=== PATIENT | female | born 1970 | race American Indian/Alaskan Native ===

== ENCOUNTER 2017-04-03 01:41 | Emergency (ER) | payer SELFPAY ==
[2017-04-03 02:17] VITALS: BP 132/102
[2017-04-03 02:46] LABS: Basophils % (Auto) 0.6 % (0.0-1.8); Eosinophils % (Auto) 2.7 % (0.0-4.3); Hematocrit 37.6 % (30.3-42.9); Hemoglobin 12.2 gm/dl (10.1-14.3); Mean Corpuscular HGB Conc 32 % (30-34); Mean Corpuscular Hemoglobin 27 pg (28-32); Mean Corpuscular Volume 85 fl (79-97); Platelet Count 222 K/mm3 (140-440); Red Blood Count 4.45 M/mm3 (3.65-5.03); Red Cell Distribution Width 15.3 % (13.2-15.2); White Blood Count 6.6 K/mm3 (4.5-11.0)
[2017-04-03 03:01] LABS: Anion Gap 14 mmol/L; BUN/Creatinine Ratio 24.28; Blood Urea Nitrogen 17 mg/dL (7-17); Calcium 8.5 mg/dL (8.4-10.2); Carbon Dioxide 27 mmol/L (22-30); Glucose 62 mg/dL (65-100); Potassium 3.5 mmol/L (3.6-5.0); Sodium 139 mmol/L (137-145)
[2017-04-03 03:07] LABS: Bacteria,Urine 1+ /HPF (Negative); Bilirubin,Urine NEG (Negative); Blood,Urine NEG (Negative); Ketones,Urine NEG (Negative); Leukocyte Esterase,Urine NEG (Negative); Nitrite,Urine NEG (Negative); Protein,Urine <15 mg/dL mg/dL (Negative)
--- NOTE | 2017-04-08 19:45 | ED Elopement Review ---
ED Pt Elopement review - Results review Lab results: Laboratory Tests 04/03/17 04/03/17 04/03/17 02:27 02:27 02:31 WBC 6.6 RBC 4.45 Hgb 12.2 Hct 37.6 MCV 85 MCH 27 L MCHC 32 RDW 15.3 H Plt Count 222 Lymph % (Auto) 40.0 H [place] % (Auto) 9.4 H Eos % (Auto) 2.7 Baso % (Auto) 0.6 Lymph # 2.6 [place] # 0.6 Eos # 0.2 Baso # 0.0 Seg Neutrophils % 47.3 Seg Neutrophils # 3.1 Sodium 139 Potassium 3.5 L Chloride 102.0 Carbon Dioxide 27 Anion Gap 14 BUN 17 Creatinine 0.7 Estimated GFR > 60 BUN/Creatinine Ratio 24.28 Glucose 62 L Calcium 8.5 Troponin T < 0.010 Urine Color Yellow Urine Turbidity Clear Urine pH 5.0 Ur Specific [place] 1.019 Urine Protein <15 mg/dl Urine Glucose (UA) Neg Urine Ketones Neg Urine Blood Neg Urine Nitrite Neg Urine Bilirubin Neg Urine Urobilinogen 2.0 Ur Leukocyte Esterase Neg Urine WBC (Auto) 2.0 Urine RBC (Auto) 2.0 U Epithel Cells (Auto) 2.0 Urine Bacteria (Auto) 1+ - Call Back decision Pt Call Back Decision: No action required
== END 2017-04-03 05:00 | disposition left against medical advice (07) ==
LOC: ED 01:41
DX: R10.30 Lower abdominal pain, unspecified (principal); Z53.21 Procedure and treatment not carried out due to patient leaving prior to being seen by health care provider
CPT/HCPCS: 36415; 80048; 81001; 84484; 85025; 93005; 93010

== ENCOUNTER 2018-04-26 02:05 | Emergency (ER) | payer MEDICARE ==
[2018-04-26 02:16] VITALS: BP 142/90
[2018-04-26] MEDS ORDERED: ULTRAM PO ONE (04:05)
[2018-04-26] MEDS ORDERED: BOOSTRIX IM ONE (04:05)
[2018-04-26] MEDS ORDERED: TYLENOL PO ONE (04:24)
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
== END 2018-04-26 06:45 | disposition home or self-care (01) ==
LOC: ED 02:05 → EEVIPCON 02:05 → ED 06:45
DX: S61.230A Puncture wound without foreign body of right index finger without damage to nail, initial encounter (principal); S61.031A Puncture wound without foreign body of right thumb without damage to nail, initial encounter; I10 Essential (primary) hypertension; E11.9 Type 2 diabetes mellitus without complications; G43.909 Migraine, unspecified, not intractable, without status migrainosus; J45.909 Unspecified asthma, uncomplicated; F17.200 Nicotine dependence, unspecified, uncomplicated; F12.10 Cannabis abuse, uncomplicated; Z90.49 Acquired absence of other specified parts of digestive tract; Z88.6 Allergy status to analgesic agent; Z88.2 Allergy status to sulfonamides; Z88.8 Allergy status to other drugs, medicaments and biological substances; Y04.1XXA Assault by human bite, initial encounter; Y93.89 Activity, other specified; Y92.89 Other specified places as the place of occurrence of the external cause; Y99.8 Other external cause status
CPT/HCPCS: 70450; 72125; 90471; 90715; 99283

== ENCOUNTER 2019-09-17 23:53 | Emergency (ER) | payer MEDICARE ==
[2019-09-18 00:13] VITALS: BP 126/83
== END 2019-09-18 00:59 | disposition left against medical advice (07) ==
LOC: ED 23:53
DX: R07.89 Other chest pain (principal); Z53.21 Procedure and treatment not carried out due to patient leaving prior to being seen by health care provider
CPT/HCPCS: 93005; 93010

== ENCOUNTER 2019-10-16 20:26 | Emergency (ER) | payer MEDICARE ==
[2019-10-16 22:13] VITALS: BP 137/90
[2019-10-16 22:18] LABS: Basophils % (Auto) 0.8 % (0.0-1.8); Eosinophils % (Auto) 0.7 % (0.0-4.3); Hematocrit 37.3 % (30.3-42.9); Hemoglobin 12.1 gm/dl (10.1-14.3); Lymphocytes # (Auto) 1.9 K/mm3 (1.2-5.4); Lymphocytes % (Auto) 41.6 % (13.4-35.0); Mean Corpuscular HGB Conc 32 % (30-34); Mean Corpuscular Volume 83 fl (79-97); Monocytes # (Auto) 0.6 K/mm3 (0.0-0.8); Monocytes % (Auto) 12.4 % (0.0-7.3); Platelet Count 222 K/mm3 (140-440); Red Blood Count 4.52 M/mm3 (3.65-5.03)
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
[2019-10-16] MEDS ORDERED: SODIUM CHLORIDE 0.9% 1000 ML 1,000 ML IV ONE (22:27)
[2019-10-16 22:38] LABS: BUN/Creatinine Ratio 6; Blood Urea Nitrogen 5 mg/dL (7-17); Hemolysis Index 13
== END 2019-10-16 22:56 | disposition left against medical advice (07) ==
LOC: ED 20:26
DX: E87.6 Hypokalemia (principal); R55 Syncope and collapse; F10.129 Alcohol abuse with intoxication, unspecified; I10 Essential (primary) hypertension; E11.9 Type 2 diabetes mellitus without complications; J45.909 Unspecified asthma, uncomplicated; G43.909 Migraine, unspecified, not intractable, without status migrainosus; F17.200 Nicotine dependence, unspecified, uncomplicated; Z88.5 Allergy status to narcotic agent; Z88.6 Allergy status to analgesic agent; Z88.8 Allergy status to other drugs, medicaments and biological substances; Z79.899 Other long term (current) drug therapy; Z90.49 Acquired absence of other specified parts of digestive tract; Z98.890 Other specified postprocedural states
CPT/HCPCS: 36415; 80048; 80320; 82962; 85025; 93005; 93010; G0480

== ENCOUNTER 2022-04-21 05:12 | Emergency (ER) | payer MEDICARE ==
--- NOTE | 2022-04-21 08:42 | Consultation ---
History of Present Illness - Reason for Consult Consult date: 04/21/22 Reason for consult: psychosis - History of Present Psychiatric Illness The patient was seen today. She is acting bizarrely. She is rocking and moaning. She is crying. She then starts humming. She says "I can't stop shaking, yesterday I had a seizure." The patient says she is hearing voices "saying all kinds of stuff." She endorses suicidal thoughts. When asking the patient if she had a plan, she replies "I don't have a knife." Will start medication and recommend inpatient psychiatric treatment to stabilize the patient. PAST PSYCHIATRIC HISTORY Diagnoses: schizoaffective Suicide attempts or Self-harm behavior: yes Prior psychiatric hospitalizations: yes Substance Abuse history: "weed" Previous psychiatric medications tried: Ted Outpatient treatment: yes PAST MEDICAL HISTORY: None reported Family Psychiatric History: None reported or documented SOCIAL HISTORY Marital Status: Living Arrangements: With family Employment Status: Disabled Access to guns/weapons: Denies Education: History of Abuse: Denies Legal History: Denies EVIEW OF SYSTEMS Constitutional: Negative for weight loss ENT: Negative for stridor Respiratory: Negative for cough or hemoptysis All other systems reviewed and are negative MENTAL STATUS EXAMINATION General Appearance and Behavior: Age appropriate, wearing appropriate clothes, bizarre, shaking, humming, moaning Mood: depressed Affect and affective range: congruent with mood Thought Process: illogical Thought Content: hallucinations Speech: Normal volume, Regular rate and rhythm Suicidal Ideation: Yes Homicidal Ideation: Denies Hallucinations: Auditory Delusions: None elicited Impulse Control: Limited Insight and Judgment: Limited Memory/Cognition: Limited Attention: Normal Orientation: Alert, oriented Assessment (1) Schizoaffective Disorder Plan 1013 Olanzapine 7.5mg po daily Trazodone 50mg po qhs Sitter: Defer to primary Medical: Per primary Disposition: Recommend acute psychiatric inpatient treatment Will follow. Thank you for this consult. Case staffed with Dr. Magdaleno Medications and Allergies Allergies Allergy/AdvReac Type Severity Reaction Status Date / Time codeine Allergy Itching Verified 04/03/17 02:19 NSAIDS (Non-Steroidal Allergy Unknown Verified 04/03/17 02:18 Anti-Inflamma Sulfa (Sulfonamide Allergy Hives Verified 04/03/17 02:17 Antibiotics) prednisone AdvReac HEART RACE Verified 12/07/16 09:57 / FLUTTER tramadol [From Ultram] AdvReac Dizziness Verified 04/26/18 04:25 steroids Allergy Hives Uncoded 04/03/17 02:18 Home Medications Medication Instructions Recorded Confirmed Last Taken Type Cyclobenzaprine [Flexeril] 10 mg PO TID PRN #15 tablet 12/07/16 Unknown Rx Ondansetron [Zofran ODT TAB] 4 mg PO Q8HR PRN #12 tab.rapdis 12/07/16 Unknown Rx Permethrin 5% [Acticin 5% CREAM] 1 applicatio TP ONCE #1 tube 12/07/16 Unknown Rx Fluconazole (Nf) [Diflucan TAB] 150 mg PO ONCE #1 tablet 04/26/18 Unknown Rx Naproxen [Naprosyn] 500 mg PO BID PRN 2 Days #30 tablet 04/26/18 Unknown Rx Amoxicillin/Potassium Clav 1 each PO BID #20 tablet 08/07/18 Unknown Rx [Augmentin 875-125 Tablet] HYDROcodone/APAP 5-325 [[place] 1 each PO Q6HR #8 tablet 08/07/18 Unknown Rx 5/325] Chlorhexidine Mouthwash [Peridex] 15 ml MM BID #473 bottle 08/25/18 Unknown Rx Lidocaine Viscous 2% 5 ml MM Q3H PRN #120 udc 08/25/18 Unknown Rx Mental Status Exam - Vital signs Last Vital Signs Temp 98.6 F 04/21/22 06:38 Pulse 89 04/21/22 06:38 Resp 25 H 04/21/22 06:38 BP 165/88 04/21/22 06:38 Pulse Ox 98 04/21/22 06:46 Results All other labs normal.
--- NOTE | 2022-04-21 11:59 | Emergency Department Report ---
ED Psych HPI - General Chief Complaint: Medical Clearance Stated Complaint: HEARING VOICES/MH Time Seen by Provider: 04/21/22 11:54 Source: EMS Mode of arrival: Stretcher - History of Present Illness Initial Comments: Patient is a 51-year-old female presenting for psychiatric evaluation. She reports having a seizure yesterday. On my arrival to the room she appears to be anxious and is rocking back and forth mumbling to herself. States he is hearing all kinds of voices and endorses suicidal ideations. - Related Data Previous Rx's Medication Instructions Recorded Last Taken Type Cyclobenzaprine [Flexeril] 10 mg PO TID PRN #15 tablet 12/07/16 Unknown Rx Ondansetron [Zofran ODT TAB] 4 mg PO Q8HR PRN #12 tab.rapdis 12/07/16 Unknown Rx Permethrin 5% [Acticin 5% CREAM] 1 applicatio TP ONCE #1 tube 12/07/16 Unknown Rx Fluconazole (Nf) [Diflucan TAB] 150 mg PO ONCE #1 tablet 04/26/18 Unknown Rx Naproxen [Naprosyn] 500 mg PO BID PRN 2 Days #30 tablet 04/26/18 Unknown Rx Amoxicillin/Potassium Clav 1 each PO BID #20 tablet 08/07/18 Unknown Rx [Augmentin 875-125 Tablet] HYDROcodone/APAP 5-325 [[place] 1 each PO Q6HR #8 tablet 08/07/18 Unknown Rx 5/325] Chlorhexidine Mouthwash [Peridex] 15 ml MM BID #473 bottle 08/25/18 Unknown Rx Lidocaine Viscous 2% 5 ml MM Q3H PRN #120 udc 08/25/18 Unknown Rx Allergies Allergy/AdvReac Type Severity Reaction Status Date / Time codeine Allergy Itching Verified 04/03/17 02:19 NSAIDS (Non-Steroidal Allergy Unknown Verified 04/03/17 02:18 Anti-Inflamma Sulfa (Sulfonamide Allergy Hives Verified 04/03/17 02:17 Antibiotics) prednisone AdvReac HEART RACE Verified 12/07/16 09:57 / FLUTTER tramadol [From Ultram] AdvReac Dizziness Verified 04/26/18 04:25 steroids Allergy Hives Uncoded 04/03/17 02:18 ED Review of Systems ROS: Stated complaint: HEARING VOICES/MH Other details as noted in HPI Constitutional: denies: chills, fever Respiratory: denies: cough, shortness of breath, wheezing Cardiovascular: denies: chest pain, palpitations Gastrointestinal: denies: abdominal pain, nausea, diarrhea Genitourinary: denies: urgency, dysuria, discharge Musculoskeletal: denies: back pain, joint swelling, arthralgia Skin: denies: rash, lesions Neurological: other (Seizure) Psychiatric: auditory hallucinations, suicidal thoughts ED Past Medical Hx - Past Medical History Hx Hypertension: Yes Hx Diabetes: Yes Hx Headaches / Migraines: Yes Hx Asthma: Yes Additional medical history: URTICARIA. SLEEP APNEA. HEART MURMUR - Surgical History Hx Cholecystectomy: Yes Additional Surgical History: GASTRIC BYPASS. . BILATERAL CARPAL TUNNEL RELEASE. LEFT KNEE SURGERY. TUBAL LIGATION - Social History Smoking Status: Current Every Day Smoker Substance Use Type: Alcohol, Methamphetamines - Medications Home Medications: Home Medications Medication Instructions Recorded Confirmed Last Taken Type Cyclobenzaprine [Flexeril] 10 mg PO TID PRN #15 tablet 12/07/16 Unknown Rx Ondansetron [Zofran ODT TAB] 4 mg PO Q8HR PRN #12 tab.rapdis 12/07/16 Unknown Rx Permethrin 5% [Acticin 5% CREAM] 1 applicatio TP ONCE #1 tube 12/07/16 Unknown Rx Fluconazole (Nf) [Diflucan TAB] 150 mg PO ONCE #1 tablet 04/26/18 Unknown Rx Naproxen [Naprosyn] 500 mg PO BID PRN 2 Days #30 tablet 04/26/18 Unknown Rx Amoxicillin/Potassium Clav 1 each PO BID #20 tablet 08/07/18 Unknown Rx [Augmentin 875-125 Tablet] HYDROcodone/APAP 5-325 [[place] 1 each PO Q6HR #8 tablet 08/07/18 Unknown Rx 5/325] Chlorhexidine Mouthwash [Peridex] 15 ml MM BID #473 bottle 08/25/18 Unknown Rx Lidocaine Viscous 2% 5 ml MM Q3H PRN #120 udc 08/25/18 Unknown Rx ED Physical Exam - General Limitations: Altered Mental Status General appearance: alert, anxious - Head Head exam: Present: atraumatic, normocephalic - Respiratory Respiratory exam: Present: normal lung sounds bilaterally. Absent: respiratory distress - Cardiovascular Cardiovascular Exam: Present: regular rate, normal rhythm, normal heart sounds - GI/Abdominal GI/Abdominal exam: Present: soft. Absent: tenderness - Rectal Rectal exam: Present: deferred - Extremities Exam Extremities exam: Present: normal inspection - Neurological Exam Neurological exam: Present: alert, oriented X3 - Psychiatric Psychiatric exam: Present: anxious, suicidal ideation - Skin Skin exam: Present: warm, dry, intact, normal color ED Course Vital Signs 04/21/22 04/21/22 04/21/22 06:38 06:46 10:07 Temperature 98.6 F 98.7 F Pulse Rate 89 86 Respiratory 25 H 18 Rate Blood Pressure 165/88 Blood Pressure 158/70 [Left] O2 Sat by Pulse 98 98 100 Oximetry Critical care attestation.: If time is entered above; I have spent that time in minutes in the direct care of this critically ill patient, excluding procedure time. ED Disposition Condition: Stable
[2022-04-21 18:39] LABS: Hematocrit 30.1 % (30.3-42.9); Hemoglobin 9.7 gm/dl (10.1-14.3); Mean Corpuscular HGB Conc 32 % (30-34); Platelet Count 345 K/mm3 (140-440)
[2022-04-21 18:52] LABS: Alanine Aminotransferase 32 units/L (7-56); Albumin 4.6 g/dL (3.9-5); BUN/Creatinine Ratio 6; Blood Urea Nitrogen 6 mg/dL (7-17); Calcium 9.9 mg/dL (8.4-10.2); Hemolysis Index 4
[2022-04-21 18:53] LABS: Mean Corpuscular Volume 68 fl (79-97); Red Cell Distribution Width 21.3 % (13.2-15.2)
[2022-04-21 20:59] LABS: Total Cells Counted 100
[2022-04-21 21:00] LABS: Anisocytosis 1+; Basophils % (Manual) 0 % (0.0-1.8); Eosinophils % (Manual) 0 % (0.0-4.3)
[2022-04-21 21:01] LABS: Hypochromasia 1+
[2022-04-21 21:02] LABS: Platelet Estimate Consistent w Auto
[2022-04-21] MEDS: traZODone 50 MG TAB PO SCH (22:05)
[2022-04-21] MEDS ORDERED: HALOPERIDOL LACTATE 5 MG/1 ML INJ IM ONE (22:10)
--- NOTE | 2022-04-22 07:56 | Progress Note ---
Subjective - Reason for Consult Consult date: 04/22/22 Reason for consult: psychosis - Chief Complaint Chief complaint: The patient was seen today. She is shaking and states she's trying to drown out the voices. She still endorses SI. When asked if she had a plan, she replies "I don't have nothing to do it with in here." She denies homicidal thoughts. REVIEW OF SYSTEMS Constitutional: Negative for weight loss ENT: Negative for stridor Respiratory: Negative for cough or hemoptysis All other systems reviewed and are negative MENTAL STATUS EXAMINATION General Appearance and Behavior: Age appropriate, wearing appropriate clothes, bizarre, shaking, humming, moaning Mood: depressed Affect and affective range: congruent with mood Thought Process: illogical Thought Content: hallucinations Speech: Normal volume, Regular rate and rhythm Suicidal Ideation: Yes Homicidal Ideation: Denies Hallucinations: Auditory Delusions: None elicited Impulse Control: Limited Insight and Judgment: Limited Memory/Cognition: Limited Attention: Normal Orientation: Alert, oriented Assessment (1) Schizoaffective Disorder Plan 1013 Start Prozac 20mg po daily Increase Olanzapine 20mg po daily Trazodone 50mg po qhs Sitter: Defer to primary Medical: Per primary Disposition: Recommend acute psychiatric inpatient treatment Will follow. Thank you for this consult. Case staffed with Dr. Magdaleno Mental Status Exam - Vital signs Last Vital Signs Temp 98.7 F 04/22/22 02:59 Pulse 84 04/22/22 02:59 Resp 18 04/22/22 02:59 BP 103/66 04/22/22 02:59 Pulse Ox 98 04/22/22 02:59
[2022-04-22] MEDS ORDERED: FLUoxetine 20 MG CAP PO SCH (10:00)
[2022-04-22 11:25] LABS: Amphetamine Screen,Urine Negative; Benzodiazepines Screen,Urine Negative; Cannabinoid Screen,Urine Negative; Cocaine Screen,Urine Negative; Methadone Screen,Urine Negative; Opiate Screen,Urine Negative
[2022-04-22 11:44] LABS: Bacteria,Urine 1+ /HPF (Negative); Mucus,Urine 3+ /HPF
[2022-04-22 12:05] LABS: Bilirubin,Urine Negative (Negative); Color,Urine Straw (Yellow)
[2022-04-22 12:06] LABS: Blood,Urine Negative (Negative); Protein,Urine <15 mg/dL mg/dL (Negative); Urobilinogen,Urine < 2.0 mg/dL (<2.0)
--- NOTE | 2022-04-22 15:56 | Event Note ---
Date: 04/22/22 Chart reviewed. VSS. Pt is comfortable/well appearing. Denies any complaints and is in no distress.
[2022-04-23 02:47] VITALS: BP 127/66
[2022-04-23] MEDS: traZODone 50 MG TAB PO SCH (02:52)
== END 2022-04-23 09:28 ==
LOC: ED 05:12
DX: R44.0 Auditory hallucinations (principal); I10 Essential (primary) hypertension; E11.9 Type 2 diabetes mellitus without complications; F17.200 Nicotine dependence, unspecified, uncomplicated; F10.20 Alcohol dependence, uncomplicated; Z88.2 Allergy status to sulfonamides; Z88.6 Allergy status to analgesic agent; Z88.5 Allergy status to narcotic agent; Z20.822 Contact with and (suspected) exposure to COVID-19
CPT/HCPCS: 36415; 80053; 85007; 85025; 96372; 99285; J1630; 80320; G0480